=== PATIENT | male | born 1980 | race Caucasian/White ===

== ENCOUNTER → 2021-09-14 10:08 | Outpatient (CLI) | payer OTHER, SELFPAY ==
[2021-09-14 19:11] LABS: SARS-CoV-2 RNA PCR Positive
== END ==
PROVIDERS: PCP Internal Medicine; Visit Provider Internal Medicine
DX: U07.1 COVID-19 (principal)
CPT/HCPCS: C9803; U0003; U0005

== ENCOUNTER 2021-09-21 11:59 | Outpatient (CLI) | payer OTHER, SELFPAY ==
--- NOTE | ~2021-09-21 | XR_ITS ---
EXAMINATION: XR chest 2V 09/21/2021 12:14 INDICATION: Cough. PROCEDURE: 2 view chest COMPARISON: No prior studies for comparison. FINDINGS: There are ill-defined nodular densities in the right mid and upper thorax. No focal airspac e disease. No pleural effusion, edema or pneumothorax. Heart size normal. IMPRESSION: 1: Ill-defined nodular densities right mid and upper thorax. Correlation with CT chest recommended t o exclude parenchymal nodule. Reviewed, dictated and finalized at location A. H REPAIR PERSON IMPRESSION: 1: Ill-defined nodular densities right mid and upper thorax. Correlation with CT chest recommended to exclude parenchymal nodule.
== END 2021-09-21 12:00 | disposition home or self-care (01) ==
LOC: ANHIMG 12:03
PROVIDERS: PCP Internal Medicine; Visit Provider Physician Assistant
DX: R05.9 Cough, unspecified (principal); R91.8 Other nonspecific abnormal finding of lung field
CPT/HCPCS: 71046

== ENCOUNTER 2021-09-29 14:45 | Outpatient (CLI) | payer OTHER, SELFPAY ==
--- NOTE | ~2021-09-29 | CT_ITS ---
EXAMINATION: CT chest high resolution wo co DATE: 09/29/2021 15:02 INDICATION: R93.89 - Abnormal findings on diagnostic imaging of other... TECHNIQUE: Computed tomography (CT) of the chest was performed without intravenous contrast. Addition al 3D reconstructions utilizing coronal maximum intensity projection (MIP) were performed. Automated exposure control and iterative reconstruction technique were employed. The dose-length product was 94 2.03 mGy-cm. COMPARISON: Chest radiograph dated 09/21/2021 FINDINGS: Multiple scattered groundglass nodules, some solid nodules and patchy more ill-defined regions of domitila undglass opacity in both lungs with peripheral predominance which are most likely infectious or infla mmatory in etiology. No pulmonary edema, pleural effusion or pneumothorax. Heart size is normal. No p ericardial effusion. No pathologically enlarged thoracic lymphadenopathy. Focal hepatic steatosis marylou ng the ligamentum teres. Cholecystectomy clip at the gallbladder fossa. Mild thoracic spondylosis. IMPRESSION: 1. Scattered bilateral lung disease characterized by groundglass and some solid nodules and more ill- defined regions of groundglass opacity most likely infectious/inflammatory in etiology. Differential would include COVID pneumonia or other atypical fungal or mycobacterial infection, hypersensitivity p neumonitis, drug toxicity and organizing pneumonia. Differential for any individual lesion would incl ude malignancy however this would be unlikely to account for the multiplicity of the lesions. Recomme nd 3 month follow-up chest CT. Reviewed, dictated and finalized at location H. ECTIONAL SERGEANT IMPRESSION: 1. Scattered bilateral lung disease characterized by groundglass and some solid nodules and more ill-defined regions of groundglass opacity most likely infect ious/inflammatory in etiology. Differential would include COVID pneumonia or ot her atypical fungal or mycobacterial infection, hypersensitivity pneumonitis, d rug toxicity and organizing pneumonia. Differential for any individual lesion w ould include malignancy however this would be unlikely to account for the multi plicity of the lesions. Recommend 3 month follow-up chest CT.
== END 2021-09-29 14:46 | disposition home or self-care (01) ==
LOC: ANHIMG 14:49
PROVIDERS: PCP Internal Medicine; Visit Provider Physician Assistant
DX: R93.89 Abnormal findings on diagnostic imaging of other specified body structures (principal)
CPT/HCPCS: 71250

== ENCOUNTER 2022-01-08 11:20 | Outpatient (CLI) | payer OTHER, SELFPAY ==
--- NOTE | ~2022-01-08 | CT_ITS ---
EXAMINATION:CT diagnostic chest wo con DATE: 01/08/2022 11:45 INDICATION: Lung disease. Abnormal findings on diagnostic imaging. TECHNIQUE: Computed tomography (CT) of the chest was performed without intravenous contrast. Automate d exposure control and iterative reconstruction technique were employed. The dose-length product (DLP ) was 863.57 mGy-cm. COMPARISON: Chest CT 09/29/2021, CT abdomen and pelvis 01/02/2010 FINDINGS: There is mild atelectasis in right lung middle lobe. No pleural effusion. There is normal t hymus in anterior mediastinum. The heart size is normal. No pericardial effusion. There are changes o f cholecystectomy. There is mild thoracic spondylosis. IMPRESSION: 1. Interval resolution of lung disease. Reviewed, dictated and finalized at location A.
== END 2022-01-08 11:21 | disposition home or self-care (01) ==
PROVIDERS: PCP Internal Medicine; Visit Provider Physician Assistant
DX: R93.89 Abnormal findings on diagnostic imaging of other specified body structures (principal)
CPT/HCPCS: 71250

== ENCOUNTER 2025-03-17 12:27 | Emergency (ER) | payer BC, SELFPAY ==
--- NOTE | ~2025-03-17 | XR_ITS ---
EXAM: XR abdomen/kub 1V DATE: 03/17/2025 16:04 HISTORY: left distal ureter stone . COMPARISON: CT abdomen pelvis, same date. FINDINGS: Clear lung bases. Normal bowel gas pattern. No organomegaly. Ovoid 3 x 6 mm density projec ting over the left lateral margin of the sacrum, probably corresponding to the distal ureteral stone seen by CT. Regional bones and soft tissues normal for age. IMPRESSION: Distal left ureteral stone, better visualized in the prior CT. Reviewed, dictated and finalized at location K.
--- NOTE | ~2025-03-17 | CT_ITS ---
EXAMINATION: CT abdomen pelvis wo con DATE: 03/17/2025 14:45 INDICATION: flank pain TECHNIQUE: Computed tomography (CT) of the abdomen and pelvis was performed without intravenous contr ast. Automated exposure control and iterative reconstruction technique were employed. The dose-length product was 1203.34 mGy-cm. COMPARISON: 01/02/2010. FINDINGS: Lower thorax: Unremarkable Liver: Normal. Biliary/Gallbladder: Gallbladder is absent. No bile duct dilation. Pancreas: No mass or duct dilation. Spleen: Normal. Adrenals:No mass. Kidneys: Trace left hydronephrosis and perinephric stranding. No suspicious mass. Punctate nonobstruc ting right renal calculi. GI tract: No small or large bowel dilation. Normal appendix. Mild diverticulosis without evidence of diverticulitis. Mesentery/Peritoneum: No ascites, mass, or free air. Mild central mesenteric stranding with fat halos surrounding prominent mesenteric lymph nodes. Retroperitoneum: No mass. Pelvis: 4 x 6 mm calcification in the distal left ureter. Normal urinary bladder and prostate. Soft Tissues: Borderline bilateral inguinal lymphadenopathy. Small, fat-containing umbilical and bila teral inguinal hernias. Bones: No acute osseous finding. IMPRESSION: 3 x 6 mm distal left ureteral stone causing trace left hydronephrosis. Mesenteric panniculitis. Reviewed, dictated and finalized at location K.
--- OUTSIDE RECORDS SUMMARY | 2025-03-17 12:30 | XMS_ITS | Continuity of Care Document ---
Author Organization [facility] Address [address] [place] [address] Phone Care Team Providers Care Arm Rest Builder Name Role Phone Sykes OD, Talha Unavailable Unavailable Procedures Procedure Date CL Replacement - Other Lens 3 day Blinds [employer]jek[employer] No Charge Contact Lens Check Vision Svcs Frames Purchases SV Poly Carb Sph [place] To +/- 4 007 Tint Photochromatic, Polycarb 7 Anti-reflective Coating 3 day Blinds Projektino Eye Exam, New Patient Refraction CL Replacement - Vistakon Disp W/BW Soft 3 day Blinds [employer]jekt[employer] Advance Directives Directive Yes / No Effective Date File Name No Information Encounters Encounter Description Practice Location Reason(s) For Visit Diagnoses Date Provider Providers Copied on Encounter [facility] [place] [facility], [address] [place] [address] [address], [place], [place], [id number], tel:[phone] [facility] No Information Jan-1 0-200 7 Sykes OD Talha. [address] , [address], [place], [address], [place]. tel:[phone] [facility] [place] [facility], [address] [place] [address] [address], [place], [place], [address], [place] tel:[phone] [facility] No Information Apr-0 5-200 7 Sykes OD Talha. [address], [address], [place], [address], [place]. tel:[phone] [facility], [address], [place], [place], [address], [place] tel:[phone] [facility] No Information Mar-3 0-200 7 [employer] . [address] [facility], [address], [place], [place], [address], [place]. tel:[phone] Referring Provider: Talha Parikh, [address] [facility] [address], [place], [address]. tel:[phone] g Provider: Renetta Landeros, [address] [place], [address]. tel:[phone] [facility], [address], [place], [place], [address], [place] tel:[phone] [facility] No Information Dec-2 7-200 7 Sykes MIHIR Palencia. [address] [facility] , [address], [place], [address], [place]. tel:[phone] Family History Family Member Type Diagnosis Age At Onset No Information Payers Payer name Insurance type Covered democrat ID Authoriza tion(s) No Information Social History Type Description Quantity Date Captured Comments Sex Male Smoking Status No Information Chief Complaint And Reason For Visit No Information Reason For Referral Reason For Referral No Information History Of Present Illness Encounter Date Complaint History Of Prese nt Illness No Information Functional Status Date Functional Assessmen t No Information Instructions Date Instruction Additional Infor mation No Information Assessments Type Assessment Date No Information Patient Care Teams Name Effective Dates (start - stop) Status Members No Information
--- OUTSIDE RECORDS SUMMARY | 2025-03-17 12:30 | XMS_ITS | Clinical Summary ---
Author Organization [facility] Address [address] [place] [id number] Care Team Providers Care Strap Sewer Name Role Phone Mustapha Leos Primary Care Provider [phone] Source Comments [facility],non-owned Affiliates and Associated Physician Practices is amultiple site organization consisting of ambulatory clinics and hospital sitesin [place], [place], [place] and [place]. This disclosure is being madepursuant to the Care Everywhere program and may not contain all information available regarding this patient. Last updated 18.[facility] Allergies No known active allergies Medications * Be aware that medications may not be up to date on this document. Alwaysverify current medications with the patient. No known medications Family History Medical History Relation Name Comments COPD - Chronic Obstructive Pulmonary Disease Father Diabetes - Type 2 Father Other - Pulmonary/Lung Mother Fibro sis Relation Name Status Comments Father Mother Social History Tobacco Use Types Packs/Day Years Used Date Smoking Tobacco: Passive Smo ke Exposure - Never Smoker Smokeless Tobacco: Never Comments:father smoked in ho use Sex and Gender Information Value Date Recorded Sex Assigned at Not on file Legal Sex Male 9:12 AM CDT Gender Identity Not on file Sexual Orientation Not on file Last Filed Vital Signs Vital Sign Reading Time Taken Comments Blood Pressure 142/88 2020 2:06 PM CDT Pulse 88 2020 2:06 PM CDT Temperature 36.6 C (97.9 F) 2020 2:06 PM CDT Respiratory Rate 16 2020 2:06 PM CDT Oxygen Saturation 98% 2020 2:06 PM CDT Inhaled Oxygen Concentration - - Weight 136.1 kg (300 lb) 2020 2:06 PM CDT Height 180.3 cm (5' 11) 2020 2:06 PM CDT Body Mass Index 41.84 2020 2:06 PM CDT Plan of Treatment Health Maintenance Due Date Last Done Comments LIPID TESTING 1981 HIV SCREENING 1996 HEPATITIS C SCREENING 03/22/1999 DTAP/TDAP/TD VACCINES (1 - Tdap) 2000 HEPATITIS B VACCINE (1 of 3 - 19+ 3-dose series) 2000 COVID-19 VACCINE (1 - 2023-2 5 season) 2024 DEPRESSION SCREENING 10/10/2024 INFLUENZA VACCINE (Season Ended) 2025 ZOSTER VACCINE (1 of 2) 2031 HIB VACCINE Aged Out No longer eligi ble based on patient's age to complete this topic HPV VACCINE Aged Out No longer eligi ble based on patient's age to complete this topic MENINGOCOCCAL (Group B) VACC INE SHARED DECISION-MAKING Aged Out No longer eligibl e based on patient's age to complete this topic MENINGOCOCCAL GROUPS A/C/Y/W VACCINE Aged Out No longer eligible b ased on patient's age to complete this topic PNEUMOCOCCAL VACCINE Aged Out No long er eligible based on patient's age to complete this topic Insurance AETNA Care Teams Strap Sewer Relationship Specialty Start Date End Date Mustapha Leos DO [address] [place] [address] PCP - General Internal Medicine 04/26/19
[2025-03-17 12:43] VITALS: BP 156/82; PULSE 93; RESP 18; TEMP 36.3; O2SAT 98
--- OUTSIDE RECORDS SUMMARY | 2025-03-17 14:22 | XMS_ITS | Continuity of Care Document ---
Author Organization [facility] [place] Address [address] [place] [address] Phone Care Team Providers Care Finishing Supervisor Plastic Sheets Name Role Phone Sykes OD, Talha Unavailable Unavailable Procedures Procedure Date CL Replacement - Other Lens J[employer] No Charge Contact Lens Check Vision Svcs Frames Purchases SV Poly Carb Sph Castor To +/- 4 007 Tint Photochromatic, Polycarb 7 Anti-reflective Coating Jibe [employer] Eye Exam, New Patient Refraction CL Replacement - Vistakon Disp W/BW Soft Jibe [employer] Advance Directives Directive Yes / No Effective Date File Name No Information Encounters Encounter Description Practice Location Reason(s) For Visit Diagnoses Date Provider Providers Copied on Encounter [facility], [address] [place] [address] [address], [place], [place], [address], tel:[phone] [facility] No Information Jan-1 0-200 7 Sykes OD Talha. [address] , [address], [place], [address], [place]. tel:[phone] [facility], [address] [place] [address] [address], [place], [place], [address], [place] tel:[phone] [facility] No Information Apr-0 5-200 7 Sykes OD Talha. [address], [address], [place], [address], [place]. tel:[phone] [facility], [address], [place], [place], [address], [place] tel:[phone] [facility] No Information Mar-3 0-200 7 [facility] [employer] . [address] [facility], [address], [place], [place], [address], [place]. tel:[phone] Referring Provider: Talha Parikh, [address] [facility] [address], [place], [address]. tel:[phone] g Provider: Renetta Landeros, [address] [place], [address]. tel:[phone] [facility], [address], [place], [place], [address], [place] tel:[phone] [facility] No Information Dec-2 7-200 7 Sykes MIHIR Palencia. [address] [facility] , [address], [place], [address], [place]. tel:[phone] Family History Family Member Type Diagnosis Age At Onset No Information Payers Payer name Insurance type Covered libertarian ID Authoriza tion(s) No Information Social History [...]
--- OUTSIDE RECORDS SUMMARY | 2025-03-17 14:22 | XMS_ITS | Clinical Summary ---
Author Organization [facility] [employer] Address [address] [place] [address] Care Team Providers Care Builder'S Labourer Name Role Phone Mustapha Leos Primary Care Provider [phone] Source Comments [facility] [employer],non-owned Affiliates and Associated Physician Practices is amultiple site organization consisting of ambulatory clinics and hospital sitesin [place], [place], [place] and [place]. This disclosure is being madepursuant to the Care Everywhere program and may not contain all information available regarding this patient. Last updated 18.[facility] [employer] [facility] Allergies No known active allergies Medications * [...] complete this topic Insurance AETNA Care Teams Builder'S Labourer Relationship Specialty Start Date End Date Mustapha Leos DO [address] [facility] [address] [place] [address] PCP - General Internal Medicine 04/26/19
[2025-03-17] MEDS: MORPHINE SULFATE (*CRX) 4 MG/ML INJ IV PUSH (15:05)
[2025-03-17] MEDS: ONDANSETRON INJ 4 MG/2 ML VIAL IV PUSH (15:05)
[2025-03-17] MEDS: SODIUM CHLORIDE 0.9% IV 1,000 ML 999 ML IV CONT (15:05)
[2025-03-17 15:12] LABS: Add Urine Microscopic? YES; Appearance Urine Clear (Clear); Bacteria Urine None Seen /hpf; Bilirubin Urine Negative (Negative); Blood Urine 2+ (Negative); Color Urine Yellow (Yellow); Glucose Urine UA 3+ mg/dL (Negative); Ketones Urine Trace mg/dL (Negative); Leukocyte Esterase Ur Negative LEU/UL (Negative); Nitrate Urine Negative (Negative); Non Pathogenic Casts 0-2; Protein Urine Negative (Negative); RBC Urine 51-100 /hpf (0-2); Specific Grav Ur 1.032 (1.001-1.035); Squamous Epithelial Cell Urine None Seen /hpf (Few); Urobilinogen Urine 0.2 mg/dL (<2.0); WBC Urine 0-5 /hpf (0-3)
[2025-03-17 15:13] VITALS: BP 148/78; PULSE 92; RESP 20; O2SAT 97
[2025-03-17] MEDS: KETOROLAC 30 MG/ML VIAL (*BKC) IV PUSH (16:07)
--- NOTE | 2025-03-17 16:30 | ED_ITS ---
HPI - General Adult General Chief complaint: Back Pain/Injury Stated complaint: L. low back pain x1 day Time Seen by Provider: 03/17/25 14:09 History of Present Illness HPI narrative: Patient is a 44-year-old male who presents ER with sudden onset back pain. Began yesterday. Left side. Radiates around into his groin today. Occasional nausea vomiting. No fevers or chills or sweats. No alleviating factors. No history kidney stones. No recent trauma or injury to the back. Related Data Allergies Allergy/AdvReac Type Severity Reaction Status Date / Time No Known Allergies Allergy Verified 03/17/25 12:28 Review of Systems Review of Systems: All systems reviewed & are unremarkable except as noted in HPI and below Constitutional: Constitutional: Reports no additional constitutional complaints Cardiovascular: Cardiovascular: Reports no additional cardiovascular complaints Respiratory: Respiratory: Reports no additional respiratory complaints Gastrointestinal: Gastrointestinal: Reports no additional gastrointestinal complaints Genitourinary: Genitourinary: Reports no additional male genitourinary complaints [facility] Past Medical History Medical History (Updated 03/17/25 @ 16:32 by Jose Stevens MD) Elevated LDL cholesterol level Type 2 diabetes mellitus Family History Family History Mother Pulmonary embolism associated with COVID-19 Social History Social History Smoking status: Never smoker Alcohol intake: current Lack of Transportation: No Lack of Food: Never True Current Housing: I Have Housing Concerned About Future Housing: No Difficulty Paying Gas/Electric Bills: No Difficulty Paying for Meds: No Currently Unemployed: No Education: High School Diploma/GED Difficulty w/ Childcare or Family Care: No Exam Narrative: GENERAL: Well-appearing, well-nourished, and in no acute distress. HEAD: Normocephalic, atraumatic. ENT: Mucous membranes moist. CHEST: Clear to auscultation. No respiratory distress. HEART: Regular rate and rhythm. Normal peripheral pulses. ABDOMEN: Soft, nontender, nondistended, no CVA tenderness left side. EXTREMITIES: Normal range of motion. No edema. SKIN: Warm, dry, no rash. NEURO: Alert and oriented x3. PSYCH: Normal mood and affect. Course Course Emergency Course: Patient informed of results. Discussed with urology. Will give 1 dose of Toradol here. Discharged home with pain control. Follow up as needed. Vital Signs Vital signs: Vital Signs Temperature 97.3 F L 03/17/25 12:43 Pulse Rate 93 03/17/25 12:43 Respiratory Rate 18 03/17/25 12:43 Blood Pressure 156/82 H 03/17/25 12:43 Pulse Oximetry 98 03/17/25 12:43 Temperature 97.3 F L 03/17/25 12:43 Pulse Rate 92 03/17/25 15:13 Respiratory Rate 20 03/17/25 15:13 Blood Pressure 148/78 H 03/17/25 15:13 Pulse Oximetry 97 03/17/25 15:13 Medical Decision Making Vital Signs Vital Signs: Vital Signs Temperature 97.3 F L 03/17/25 12:43 Pulse Rate 93 03/17/25 12:43 Respiratory Rate 18 03/17/25 12:43 Blood Pressure 156/82 H 03/17/25 12:43 Pulse Oximetry 98 03/17/25 12:43 Temperature 97.3 F L 03/17/25 12:43 Pulse Rate 92 03/17/25 15:13 Respiratory Rate 20 03/17/25 15:13 Blood Pressure 148/78 H 03/17/25 15:13 Pulse Oximetry 97 03/17/25 15:13 Lab Data Labs: Lab Results 03/17/25 Range/Units 14:59 Urine Color Yellow (Yellow) Urine Appearance Clear (Clear) Urine pH 6.0 (5.0-9.0) Ur Specific [place] 1.032 (1.001-1.035) Urine Protein Negative (Negative) mg/dL Urine Glucose (UA) 3+ H (Negative) mg/dL Urine Ketones Trace H (Negative) mg/dL Ur Blood (Man) 2+ H (Negative) Urine Nitrate Negative (Negative) Urine Bilirubin Negative (Negative) Urine Urobilinogen 0.2 (<2.0) mg/dL Leukocyte Esterase Rfl Negative (Negative) ANNA/UL Urine RBC 51-100 H (0-2) /hpf Urine WBC 0-5 (0-3) /hpf Ur Squamous Epith Cells None seen (Few) /hpf Urine Bacteria None seen /hpf Urine Casts 0-2 Imaging Data Radiologist's impression: ITS Impressions Abdomen/Pelvis CT 03/17/25 14:52 IMPRESSION: 3 x 6 mm distal left ureteral stone causing trace left hydronephrosis. Mesenteric panniculitis. Discharge Plan Discharge Clinical Impression: Ureterolithiasis Patient Disposition: Home Condition: Stable Instructions: Kidney Stones (ED) Additional Instructions: Return ER if you have worsening pain, you cannot keep down food/water/medication, have fever over 100.4? F, or you have additional concerns. Patient Language: Peruvian Prescriptions: New hydrocodone-acetaminophen 5-325 mg tablet 1 tablet PO Q6H PRN (Reason: pain) Qty: 14 0RF tamsulosin 0.4 mg capsule 0.4 mg PO DAILY Qty: 7 0RF ondansetron 4 mg tablet,disintegrating 4 mg PO Q6H PRN (Reason: nausea and vomiting) Qty: 10 0RF Follow-up/Referrals: Deric,Mustapha Tinsley DO [Primary Care Provider] - Uzair Burns MD [Physician] - 1 Week
== END 2025-03-17 17:32 | disposition home or self-care (01) ==
PROVIDERS: Emergency Provider Emergency Medicine; PCP Internal Medicine
DX: N20.1 Calculus of ureter (principal); E11.9 Type 2 diabetes mellitus without complications
CPT/HCPCS: 74018; 74176; 81001; 96361; 96374; 96375; 99284; J1885; J2270; J2405; J7030

== ENCOUNTER 2025-03-19 13:02 | Emergency (ER) | payer BC, SELFPAY ==
[2025-03-19 13:04] VITALS: BP 182/86; PULSE 71; RESP 17; TEMP 36.6; O2SAT 100
[2025-03-19] MEDS: ONDANSETRON INJ 4 MG/2 ML VIAL IV PUSH (13:49)
[2025-03-19] MEDS: HYDROmorphone HCL INJ (*CRX) 2 MG/ML VIAL 1 MG IV PUSH (13:53)
[2025-03-19] MEDS: KETOROLAC 15 MG/ML VIAL (*BKC) IV PUSH (13:56)
--- OUTSIDE RECORDS SUMMARY | 2025-03-19 14:01 | XMS_ITS | Clinical Summary ---
Author Organization [facility] Address [address] [place] [address] Care Team Providers Care Women'S Ministry Director Name Role Phone Mustapha Leos Primary Care Provider [phone] Source Comments [facility] [employer],non-owned Affiliates and Associated Physician Practices is amultiple site organization consisting of ambulatory clinics and hospital sitesin [place], [place], [place] and [place]. This disclosure is being madepursuant to the Care Everywhere program and may not contain all information available regarding this patient. Last updated 18.[facility] Allergies No known active allergies Medications * [...] complete this topic Insurance AETNA Care Teams Women'S Ministry Director Relationship Specialty Start Date End Date Mustapha Leos DO [address] [facility] [address] [place] [address] PCP - General Internal Medicine 04/26/19
[2025-03-19 14:03] LABS: Basophils Percent Auto 0.4 % (0.2-1.2); Eosinophils Percent Auto 0.2 % (0-4.4); Hematocrit 46.7 % (42.0-52.0); Hemoglobin 15.5 g/dL (14.0-18.0); Immature Granulocyte Absolute 0.03 K/mm3 (0.00-0.031); Immature Granulocyte Percent A 0.3 % (0-0.5); Lymphocytes Absolute Auto 1.41 K/mm3 (0.9-3.2); Mean Corpuscular HGB Conc 33.2 g/dl (32-36); Mean Corpuscular Hemoglobin 27.7 pg (26-34); Mean Corpuscular Volume 83.5 fl (80-100); Mean Platelet Volume 10.5 fl (7.4-10.4); Monocytes Absolute Auto 0.6 K/mm3 (0.1-0.6); Monocytes Percent Auto 5.8 % (2.6-8.5); Neutrophils Absolute Auto 8.7 K/mm3 (1.3-6.7); Neutrophils Percent Auto 80.3 % (45.5-73.1); Platelet Count Result 277 k/mm3 (150-375); Red Blood Count 5.59 M/mm3 (4.6-6.20); Red Cell Distribution Width 12.4 % (11.5-14.5); White Blood Count 10.8 K/mm3 (4.5-10.0)
[2025-03-19 14:17] LABS: Alanine Aminotransferase 26 U/L (6-50); Albumin Level 5.1 g/dL (3.5-5.1); Alkaline Phosphatase 66 U/L (38-126); Anion Gap 13 mmol/L (4-12); Aspartate Amino Transferase 31 U/L (17-59); Bilirubin,Total 1.7 mg/dL (0.2-1.3); Blood Urea Nitrogen 13 mg/dL (9-20); Carbon Dioxide 27 mmol/L (22-30); Chloride 94 mmol/L (98-107); Estimated CRCL calculation 110 ml/min; Estimated Glomerular Filt Rate > 60; Glucose 200 mg/dL (65-110); Sodium 134 mmol/L (137-145)
[2025-03-19] MEDS: ACETAMINOPHEN 500 MG TABLET 1000 MG PO (14:26)
--- OUTSIDE RECORDS SUMMARY | 2025-03-19 14:32 | XMS_ITS | Continuity of Care Document ---
Author Organization [facility] Address [address] [place] [address] Phone Care Team Providers Care Prepress Proofer Name Role Phone Sykes OD, Talha Unavailable Unavailable Procedures Procedure Date CL Replacement - Other Lens [employer] No Charge Contact Lens Check Vision Svcs Frames Purchases SV Poly Carb Sph [place] To +/- 4 007 Tint Photochromatic, Polycarb 7 Anti-reflective Coating [employer] Eye Exam, New Patient Refraction CL Replacement - Vistakon Disp W/BW Soft [employer] Advance Directives Directive Yes / No Effective Date File Name No Information Encounters Encounter Description Practice Location Reason(s) For Visit Diagnoses Date Provider Providers Copied on Encounter [facility], [address] [place] [address] [address], [place], [place], [address], tel:[phone] [facility] No Information Jan-1 0-200 7 Sykes OD Talha. [address], [place], [address], [place]. tel:[phone] [facility], [address] [place] [address] [address], [place], [place], [address], [place] tel:[phone] [facility] No Information Apr-0 5-200 7 Sykes OD Talha. [address], [place], [address], [place]. tel:[phone] [facility], [address], [place], [place], [address], [place] tel:[phone] [facility] No Information Mar-3 0-200 7 [employer] . [address] [facility], [address], [place], [place], [address], [place]. tel:[phone] Referring Provider: Talha Parikh, [address] [facility] [address], [place], [address]. tel:[phone] g Provider: Renetta Landeros, [address] [place], [address]. tel:[phone] [facility], [address], [place], [place], [address], [place] tel:[phone] [facility] No Information Dec-2 7-200 7 Sykes MIHIR Palencia. [address] [facility] , [address], [place], [address], [place]. tel:[phone] Family History Family Member Type Diagnosis Age [...]
--- OUTSIDE RECORDS SUMMARY | 2025-03-19 14:32 | XMS_ITS | Clinical Summary ---
Author Organization [facility] [employer] Address [address] [place] [address] Care Team Providers Care Cloth Cutter Name Role Phone Mustapha Leos Primary Care Provider [phone] Source Comments [facility] [employer],non-owned Affiliates and Associated Physician Practices is amultiple site organization consisting of ambulatory clinics and hospital sitesin [place], [place], [place] and [place]. This disclosure is being madepursuant to the Care Everywhere program and may not contain all information available regarding this patient. Last updated 18.[facility] [employer] Allergies No known active allergies Medications * [...] complete this topic Insurance [employer] Care Teams Cloth Cutter Relationship Specialty Start Date End Date Mustapha Leos DO [address] [place] [address] PCP - General Internal Medicine 04/26/19
[2025-03-19 14:37] LABS: Add Urine Microscopic? NO; Appearance Urine Clear (Clear); Bilirubin Urine Negative (Negative); Blood Urine Negative (Negative); Color Urine Yellow (Yellow); Glucose Urine UA Negative (Negative); Ketones Urine Trace mg/dL (Negative); Leukocyte Esterase Ur Negative LEU/UL (Negative); Nitrate Urine Negative (Negative); Protein Urine Negative (Negative); Specific Grav Ur 1.009 (1.001-1.035); Urobilinogen Urine 0.2 mg/dL (<2.0); pH Urine 5.5 (5.0-9.0)
--- NOTE | 2025-03-19 15:12 | ED.GENADULT ---
HPI - General Adult General Chief complaint: Recheck/Abnormal Lab/Rx Stated complaint: 6mm kidney stone Time Seen by Provider: 03/19/25 13:14 History of Present Illness HPI narrative: This is a 44-year-old male with a known 3x6mm distal kidney stone presenting presenting for flank pain. He was diagnosed in our ED several days ago. Since then he has been taking 400 mg of Motrin q6 and Register q.6. His pain is not been controlled. He has had several episodes of vomiting. No fevers chills or urinary symptoms. He has not obtained follow-up with urology Related Data Allergies Allergy/AdvReac Type Severity Reaction Status Date / Time No Known Allergies Allergy Verified 03/17/25 12:28 [facility] Past Medical History Medical History (Updated 03/19/25 @ 15:30 by Brandon Matthews MD) Elevated LDL cholesterol level Type 2 diabetes mellitus Family History Family History Mother Pulmonary embolism associated with COVID-19 Social History Social History Smoking status: Never smoker Alcohol intake: current Lack of Transportation: No Lack of Food: Never True Current Housing: I Have Housing Concerned About Future Housing: No Difficulty Paying Gas/Electric Bills: No Difficulty Paying for Meds: No Currently Unemployed: No Education: High School Diploma/GED Difficulty w/ Childcare or Family Care: No Exam Narrative: APPEARANCE: No apparent distress. Head: atraumatic. EYES: EOMI, NOSE: Atraumatic NECK: Trachea midline RESPIRATORY: No increased rate of breathing CARDIOVASCULAR: RRR, ABDOMINAL: Non-distended soft nontender no guarding rebound no CVA tenderness MUSCULOSKELETAl: No obvious deformities NEURO: Alert. Moving 4/4 extremities SKIN:: Warm, dry. Normal color PSYCHIATRIC: Normal affect Course Vital Signs Vital signs: Vital Signs Temperature 98 F 03/19/25 13:04 Pulse Rate 71 03/19/25 13:04 Respiratory Rate 17 03/19/25 13:04 Blood Pressure 182/86 H 03/19/25 13:04 Pulse Oximetry 100 03/19/25 13:04 Oxygen Delivery Room Air 03/19/25 13:04 Temperature 98 F 03/19/25 13:04 Pulse Rate 71 03/19/25 13:04 Respiratory Rate 17 03/19/25 13:04 Blood Pressure 182/86 H 03/19/25 13:04 Pulse Oximetry 100 03/19/25 13:04 Oxygen Delivery Room Air 03/19/25 13:04 Medical Decision Making [facility] Narrative Medical decision making narrative: -Course: 44-year-old male presenting with kidney stone pain setting of a known kidney stone. Patient given Toradol and Dilaudid with resolution of his pain. He is monitored for several hours has been resting comfortably with no distress. His pain regimen will be switched to Motrin 800 mg, Tylenol 1000 mg q.8 hours with oxycodone 5 mg p.r.n.x2 for breakthrough pain. If pain is not controlled after 2 doses of oxycodone 30 minutes apart he should return to the ED for re-evaluation. = Vital Signs Vital Signs: Vital Signs Temperature 98 F 03/19/25 13:04 Pulse Rate 71 03/19/25 13:04 Respiratory Rate 17 03/19/25 13:04 Blood Pressure 182/86 H 03/19/25 13:04 Pulse Oximetry 100 03/19/25 13:04 Oxygen Delivery Room Air 03/19/25 13:04 Temperature 98 F 03/19/25 13:04 Pulse Rate 71 03/19/25 13:04 Respiratory Rate 17 03/19/25 13:04 Blood Pressure 182/86 H 03/19/25 13:04 Pulse Oximetry 100 03/19/25 13:04 Oxygen Delivery Room Air 03/19/25 13:04 Lab Data 03/19/25 13:53 03/19/25 13:53 Labs: Lab Results 03/19/25 03/19/25 Range/Units 13:53 14:16 WBC 10.8 H (4.5-10.0) K/mm3 RBC 5.59 (4.6-6.20) M/mm3 Hgb 15.5 (14.0-18.0) g/dL Hct 46.7 (42.0-52.0) % MCV 83.5 (80-100) fl MCH 27.7 (26-34) pg MCHC 33.2 (32-36) g/dl RDW 12.4 (11.5-14.5) % Plt Count 277 (150-375) k/mm3 MPV 10.5 H (7.4-10.4) fl Immature Gran % (Auto) 0.3 (0-0.5) % Neut % (Auto) 80.3 H (45.5-73.1) % Lymph % (Auto) 13.0 L (18.3-44.2) % [place] % (Auto) 5.8 (2.6-8.5) % Eos % (Auto) 0.2 (0-4.4) % Baso % (Auto) 0.4 (0.2-1.2) % Lymph # (Auto) 1.41 (0.9-3.2) K/mm3 [place] # (Auto) 0.6 (0.1-0.6) K/mm3 Eos # (Auto) 0.0 (0-0.3) K/mm3 Baso # (Auto) 0.0 (0.0-0.1) K/mm3 Abs Immat Gran (auto) 0.03 (0.00-0.031) K/mm3 Absolute Neuts (auto) 8.7 H (1.3-6.7) K/mm3 Absolute Nucleated RBC 0.000 (0.0-0.012) K/mm3 Nucleated RBC % 0.0 (0.0-0.2) % Sodium 134 L (137-145) mmol/L Potassium 4.0 (3.4-5.0) mmol/L Chloride 94 L (98-107) mmol/L Carbon Dioxide 27 (22-30) mmol/L Anion Gap 13 H (4-12) mmol/L BUN 13 (9-20) mg/dL Creatinine 1.08 (0.7-1.3) mg/dL Estim Creat Clear Calc 110 ml/min Estimated GFR > 60 (59 - ) Glucose 200 H (65-110) mg/dL Calcium 10.0 (8.4-10.2) mg/dL Total Bilirubin 1.7 H (0.2-1.3) mg/dL AST 31 (17-59) U/L ALT 26 (6-50) U/L Alkaline Phosphatase 66 (38-126) U/L Total Protein 9.0 H (6.3-8.2) g/dL Albumin 5.1 (3.5-5.1) g/dL Urine Color Yellow (Yellow) Urine Appearance Clear (Clear) Urine pH 5.5 (5.0-9.0) Ur Specific [place] 1.009 (1.001-1.035) Urine Protein Negative (Negative) mg/dL Urine Glucose (UA) Negative (Negative) mg/dL Urine Ketones Trace H (Negative) mg/dL Ur Blood (Man) Negative (Negative) Urine Nitrate Negative (Negative) Urine Bilirubin Negative (Negative) Urine Urobilinogen 0.2 (<2.0) mg/dL Leukocyte Esterase Rfl Negative (Negative) ANNA/UL Discharge Plan Discharge Clinical Impression: Kidney stone Patient Disposition: Home Condition: Stable Instructions: Antibiotic Form, Kidney Stones (ED) Additional Instructions: You were seen in the emergency department for kidney stone pain. Please take Motrin 800 mg every 8 hours. Please take Tylenol 1000 mg every 8 hours. Use oxycodone 5 mg for breakthrough pain. Your pain is not controlled 30 minutes after taking oxycodone take another 5 mg oxycodone. If your pain is not controlled after that return to the ED for re-evaluation. Return to ED if you develop fevers severe pain or any new or worsening conditions. Please call urologist listed below to arrange follow-up. Patient Language: [place]de[place] Prescriptions: New ibuprofen 800 mg tablet 800 mg PO TID PRN (Reason: pain) 7 Days Qty: 21 0RF acetaminophen 500 mg tablet 1,000 mg PO TID PRN (Reason: trent) 7 Days Qty: 42 0RF tamsulosin [Flomax] 0.4 mg capsule 0.4 mg PO DAILY Qty: 30 0RF ondansetron 4 mg tablet,disintegrating 4 mg PO Q8H PRN (Reason: nausea and vomiting) Qty: 30 0RF oxycodone 5 mg tablet 5 mg PO Q4H PRN (Reason: pain) Qty: 14 0RF No Action hydrocodone-acetaminophen 5-325 mg tablet 1 tablet PO Q6H PRN (Reason: pain) Qty: 14 0RF tamsulosin 0.4 mg capsule 0.4 mg PO DAILY Qty: 7 0RF ondansetron 4 mg tablet,disintegrating 4 mg PO Q6H PRN (Reason: nausea and vomiting) Qty: 10 0RF Follow-up/Referrals: Deric,Mustapha Tinsley DO [Primary Care Provider] - Uzair Burns MD [Physician] - 1 Week (Kidney stone )
[2025-03-19 16:00] VITALS: BP 132/67; PULSE 65; RESP 16; TEMP 36.3; O2SAT 99
== END 2025-03-19 16:25 | disposition home or self-care (01) ==
PROVIDERS: Emergency Provider Emergency Medicine; PCP Internal Medicine
DX: N20.0 Calculus of kidney (principal); E11.9 Type 2 diabetes mellitus without complications
CPT/HCPCS: 36415; 80053; 81003; 85025; 96374; 96375; 99284; A9270; J1171; J1885; J2405

== ENCOUNTER 2025-09-26 14:43 | Outpatient (CLI) | payer BC, SELFPAY ==
--- NOTE | ~2025-09-26 | CT_ITS ---
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 Diagnostic sensitivity is limited due to lack of oral and IV contrast. FINDINGS: The lung bases are clear. The liver parenchyma is unremarkable. No intrahepatic mass or ductal dilatation is evident. The patient has had a cholecystectomy. The pancreas and spleen are normal in appearance. The adrenal glands are symmetric in size. The kidneys are unremarkable. No intrarenal stones are noted. There is no hydronephrosis. Visualized bowel loops unremarkable. No free intraperitoneal fluid or air is evident. Mild central mesenteric fat stranding is noted with prominent mesenteric lymph nodes are unchanged. The aorta demonstrates normal caliber. The lower thoracic and upper lumbar vertebrae are in normal alignment. 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 All CT scans at this facility are performed using low dose modulation techniques as appropriate to perform exam including the following: automated exposure control; use of iterative reconstruction technique; adjustment of the mA and/or kV according to patient size (this includes techniques or standardized protocols for targeted exams where dose is matched to indication/reason for exam). Reviewed, dictated and finalized at location S. 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 All CT scans at this facility are performed using low dose modulation techniqu es as appropriate to perform exam including the following: automated exposure c ontrol; use of iterative reconstruction technique; adjustment of the mA and/or kV according to patient size (this includes techniques or standardized protocol s for targeted exams where dose is matched to indication/reason for exam).
--- OUTSIDE RECORDS SUMMARY | 2025-09-26 15:41 | XMS_ITS | Clinical Summary ---
Author Organization [facility] [employer] Address [address] [place] [address] Care Team Providers Care Assistant Executive Housekeeper Name Role Phone Mustapha Leos Primary Care Provider [phone] Source Comments [facility] [employer],non-owned Affiliates and Associated Physician Practices is amultiple site organization consisting of ambulatory clinics and hospital sitesin [place], [place], [place] and [place]. This disclosure is being madepursuant to the Care Everywhere program and may not contain all information available regarding this patient. Last updated 18.[facility] [employer] Allergies No known active allergies Medications * [...] of 3 - 19+ 3-dose series) 2000 HPV VACCINE (1 - 3-dose SCDM series) 2008 DEPRESSION SCREENING 10/10/2024 COVID-19 VACCINE (1 - 2024-2 6 season) 2025 INFLUENZA VACCINE (#1) 2025 ZOSTER VACCINE (1 of 2) 2031 [...] complete this topic Insurance [employer] Care Teams Assistant Executive Housekeeper Relationship Specialty Start Date End Date Mustapha Leos DO [address] [place] [address] PCP - General Internal Medicine 04/26/19
== END 2025-09-26 14:44 | disposition home or self-care (01) ==
PROVIDERS: PCP Internal Medicine; Visit Provider Internal Medicine
DX: K65.4 Sclerosing mesenteritis (principal)
CPT/HCPCS: 74150